=== PATIENT | female | born 1965 | race African-American/Black ===

== ENCOUNTER → 2018-05-12 | Outpatient (CLI) | payer OTHER ==
--- NOTE | 2018-05-12 09:19 | KCIC ---
Examination: MRI of the right shoulder without contrast HISTORY: History of right shoulder pain COMPARISON: None available TECHNIQUE: Multiplanar, multisequence images of the right shoulder performed. FINDINGS: The long head of the biceps tendon is within the bicipital groove. The attachment of the long head of the biceps tendon to superior labral anchor grossly appears intact. The attachment of the subscapularis tendon, supraspinatus, infraspinatus tendon grossly appears intact. No evidence of full-thickness rotator cuff tear identified. The acromion is type II with the inferior aspect of the acromion abutting the supraspinatus tendon. The labrum appears intact. The muscle bulk grossly appears unremarkable. Fat is present within the rotator interval. IMPRESSION: 1. Downsloping of the acromion with the inferior aspect of the acromion abutting the supraspinatus tendon. Correlate for impingement. No evidence of rotator cuff tear identified. Electronically signed by: Austin Benito MD (05/12/2018 9:16 AM) [id number]
== END | disposition home or self-care (01) ==
LOC: KCIC MRI 08:06
DX: M25.511 Pain in right shoulder (principal); G89.29 Other chronic pain
CPT/HCPCS: 73221